=== PATIENT | male | born 1970 | race Caucasian/White ===

== ENCOUNTER → 2017-03-07 | Outpatient (CLI) | payer OTHER ==
[2017-03-07 09:23] LABS: ANION GAP 12 (5-19); BLOOD UREA NITROGEN 14 mg/dL (7-20); CALCIUM 9.4 mg/dL (8.4-10.2); CARBON DIOXIDE 28 mmol/L (22-30); CHLORIDE 104 mmol/L (98-107); CREATININE RESULT 1.22 mg/dL (0.52-1.25); GLUCOSE 99 mg/dL (75-110); POTASSIUM 4.2 mmol/L (3.6-5.0); SODIUM 143.8 mmol/L (137-145)
[2017-03-07 10:12] LABS: URINE PROTEIN 8.2 mg/dL (<12)
[2017-03-07 10:13] LABS: URINE CREATININE 101.9 mg/dL (22-328)
[2017-03-07 10:17] LABS: CREATININE 1.22 mg/dL (0.52-1.25)
== END ==
LOC: OD 08:32
PROVIDERS: ATTEND Internal Medicine Nephrology
DX: R94.4 Abnormal results of kidney function studies (principal)
CPT/HCPCS: 36415; 80048; 82575; 84156